=== PATIENT | female | born 1970 | race Caucasian/White ===

== ENCOUNTER 2022-01-04 19:09 | Emergency (ER) | payer OTHER, SELFPAY ==
[2022-01-04 20:58] VITALS: BP 141/113; PULSE 89; RESP 19; TEMP 36.9; O2SAT 98; BMI 31.8
--- NOTE | 2022-01-04 21:47 | ED.BACK ---
HPI - Back Pain/Injury General Chief Complaint: Back Pain/Injury Stated Complaint: problem walking, severe pain Time Seen by Provider: 01/04/22 21:24 Source: patient Mode of arrival: ambulatory Limitations: no limitations History of Present Illness HPI Narrative: 51-year-old female asthma, GERD, hypothyroidism here with reports of 1 month of lower back pain with radiation down the left leg. Patient denies any known injury or trauma. 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 Patient tells me that she was seen in the emergency department on December 18. She was diagnosed with the UTI and completed a course of antibiotics. She followed up with her primary care doctor 1 week ago and had a repeat urine testing which was negative. Patient tells me she also with labs and an x-ray of her lower spine which she tell me were normal. Patient has been taking naproxen intermittently. She was prescribed a muscle relaxant but she has not started taking this. She reports pain begins in the lower spine and radiates into the left buttocks and down the left leg. She denies any sensation change of the lower extremity. She denies any saddle anesthesia. She denies any bowel or bladder incontinence or any urinary symptoms. No fevers or chills. Related Data Previous Rx's Medication Instructions Recorded prednisone 20 mg tablet 40 mg PO DAILY #10 tab 01/04/22 Allergies Allergy/AdvReac Type Severity Reaction Status Date / Time No Known Allergies Allergy Verified 01/04/22 21:45 Review of Systems Review of Systems: Yes all other systems are reviewed and are negative Constitutional: Constitutional: Reports no additional constitutional complaints, Denies body ache(s), Denies chills, Denies fever(s), Denies headache(s) and Denies weakness Eyes: Eyes: Reports no additional eye complaints and Denies change in vision ENT: Reports system reviewed and no additional complaints, except as documented, Denies dizziness, Denies headache(s), Denies nasal congestion, Denies nasal discharge and Denies neck pain Cardiovascular: Cardiovascular: Reports no additional cardiovascular complaints, Denies chest pain, Denies leg edema and Denies dyspnea Respiratory: Respiratory: Reports no additional respiratory complaints, Denies cough and Denies dyspnea Gastrointestinal: Gastrointestinal: Reports no additional gastrointestinal complaints, Denies abdominal pain, Denies diarrhea, Denies nausea and Denies vomiting Genitourinary: Genitourinary: Reports no additional female genitourinary complaints and Denies urinary incontinence Musculoskeletal: Musculoskeletal: Reports no additional musculoskeletal complaints, Reports back pain, Denies arthralgias, Denies joint swelling, Denies neck pain, Denies numbness and Denies tingling Integumentary/Breasts: Skin/Breast: Reports system reviewed and no additional complaints, except as docu and Denies rash Neurologic: Reports system reviewed and no additional complaints, except as documented, Denies Abnormal speech present, Denies dizziness, Denies headache(s), Denies numbness, Denies tingling and Denies weakness [facility] Past Medical History Attestation statement: The following information was validated with the patient. Source: old records reviewed and nursing notes reviewed Medical History Asthma GERD (gastroesophageal reflux disease) HTN (hypertension) Hypothyroid Social History Social History Advance Directives: No Advance Directives Information Provided: No Physical Exam Vital Signs: Vital Signs: Last Vital Signs Temp 98.4 F 01/04/22 20:58 Pulse 89 01/04/22 20:58 Resp 19 01/04/22 20:58 BP 141/113 H 01/04/22 20:58 Pulse Ox 98 01/04/22 20:58 BMI result Body Mass Index 31.8 Const: General: cooperative, healthy appearing, comfortable and no acute distress Orientation/consciousness: patient oriented x3 Limitations: no limitations HEENT: Head: Yes normal to inspection Ears: hearing grossly normal bilaterally General nose exam: Normal external nose present Face and sinus: Yes normal facial exam Mouth: Normal oral and palatal mucosa present Throat: Yes posterior oropharynx normal Eyes: General: appearance normal, both eyes and all related structures Pupils: Equal, round and reactive pupils present Neck: Neck: Yes normal visual inspection, Yes full ROM and Yes no lymphadenopathy Chest: Chest palpation & inspection: normal inspection of the chest Resp: Effort & Inspection: normal respiratory effort Auscultation: clear to auscultation bilaterally Cardio: Rate: regular rate Rhythm: regular rhythm Peripheral pulses: Peripheral pulses 2+ throughout GI: Inspection: Yes normal to inspection Palpation (GI): Soft to palpation and nontender Auscultation: normal bowel sounds : General: Yes no CVA tenderness Back/Spine/Pelvis: Other: Tenderness over the lumbar soft tissue area of the low spine and midline lumbar spine with no step-offs deformities. Tenderness over the left buttocks with palpable muscle spasm. Patient is able to perform straight leg raise with no difficulty Back: no CVA tenderness Thoracic/Lumbar Spine: thoracic and lumbar spine normal to inspection Skin: General skin exam: no rashes or lesions noted Neuro: General: patient oriented x3, moves all extremities, no focal motor deficits and normal sensation to monofilament Cranial nerves: Yes CN's II-XII intact bilaterally, Yes Equal, round and reactive pupils present, Yes Bilaterally intact EOM present, Yes Nystagmus not present, Yes Normal facial strength present and Yes Midline tongue present Cognition (Neuro): normal cognition Speech: No Abnormal speech present Gait exam (Neuro): Normal gait present Motor exam (neuro): 5/5 motor strength present throughout Sensory Exam: Normal double simultaneous stimulation for sensation Deep tendon reflexes (DTR's): Right patellar reflex intensity grade: 2+ and Left patellar reflex intensity grade: 2+ Extrem: General: Yes normal to inspection Course Course Course Narrative: 51-year-old female here with reports of left lower back pain for the last 1 month with no reports of any injury or trauma. Pain radiates down the left leg from the buttocks. No saddle anesthesia or incontinence. Patient had a UTI that was treated with repeat urinalysis last week which patient tells me was negative. She is not having any urinary symptoms. She also had outpatient x-rays which she tell me were normal. 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 Patient tells me she is here today because she is having persistent pain. She was prescribed muscle relaxant but she has not tried taking this. She is taking naproxen intermittently. On exam the patient has some tenderness over the lower spine and the left buttocks. She has a normal neurological exam with no red flag symptoms or deficits. I do not have access to her urinalysis and x-rays and so I offered repeating these today but the patient declined this. I discussed with her that she likely will need an outpatient MRI if she is having continued pain. However right she does not need an emergent MRI today. We did discuss worrisome signs and symptoms such as saddle anesthesia, fevers, incontinence, weakness and when to seek additional care. Will recommend the patient start her muscle relaxant, continue NSAID and will add prednisone. Reviewed worrisome signs and symptoms of when to return to the emergency department. Comfortable discharge home. MDM - Back Pain/Injury Differential Diagnosis Differential diagnosis: Likely lumbar radiculopathy and sciatica Medical Records Attestation: I reviewed the patient's medical records. Lab Data Attestation: I reviewed the patient's lab results. Discharge Plan Discharge Clinical Impression: Lumbar radiculopathy Patient Disposition: Home, Self-Care Instructions: Lumbar Radiculopathy (ED) Additional Instructions: Heat or ice Gentle stretch No heavy lifting or bending Continue naproxen Start taking the muscle relaxant Start the prednisone if the muscle relaxant does not help Follow-up with primary care doctor as you may need an outpatient MRI Prescriptions: New prednisone 20 mg tablet 40 mg PO DAILY Qty: 10 0RF Referrals: Martha Lockett MD [Primary Care Provider] - 5 days (for persistent symptoms )
== END 2022-01-04 22:38 | disposition home or self-care (01) ==
PROVIDERS: Emergency Provider Emergency Medicine; PCP Internal Medicine
DX: M54.16 Radiculopathy, lumbar region (principal); I10 Essential (primary) hypertension; J45.909 Unspecified asthma, uncomplicated
CPT/HCPCS: 99283